=== PATIENT | female | born 1980 | race Caucasian/White ===

== ENCOUNTER → 2024-02-29 11:10 | Outpatient (REF) | payer OTHER, SELFPAY | LOC: RAD 11:10 | PROVIDERS: ATTENDING PHYSICIAN Family Medicine | DX: S20.219A Contusion of unspecified front wall of thorax, initial encounter (principal); V89.2XXA Person injured in unspecified motor-vehicle accident, traffic, initial encounter | CPT/HCPCS: 71101; 71120 ==

== ENCOUNTER 2025-05-27 18:22 | Emergency (ER) | payer OTHER, SELFPAY ==
[2025-05-27 18:30] VITALS: BP 122/93
[2025-05-27 19:21] VITALS: BMI 20.4
[2025-05-27 20:15] VITALS: BP 138/80
[2025-05-27] MEDS: NORCO 5/325 1 TABLET PO (20:19)
--- NOTE | 2025-05-27 21:47 | ED.MUSCINJ ---
HPI-Injury
General
Chief Complaint: Musculo-Skeletal Complaint
Source: patient
Exam Limitations: none
Time Seen by Provider: 05/27/25 18:37
Nursing documentation reviewed up to this point in time: agreed with
History of Present Illness-Injury
Is this injury a work related problem?: No
Is pt an associate of [facility]/[place]?: No
Initial Injury comments:
Patient states she was pulling weeds and fell back. Fell onto buttocks. States she heard a crack and then passed out. She reports pain to coccyx and sacrum. Incident occured this afternoon.
Past History
Past History
ED Past Medical History: Psychiatric (depression)
ED Past Surgical History: None
Social History
Tobacco: Non-smoker
Alcohol: Daily
Drug: None
Personal:
Living: with family
Employment: Employed
Family History
Family History: Other (No history of cervical vascular disease)
Review of Systems
Review of Systems
Allergies reviewed?: Yes
All Other Systems: ROS reviewed and negative except as documented in HPI and ROS
Constitutional: Reports no symptoms
EENT: Reports no symptoms
Respiratory: Reports no symptoms
Cardiac: Reports no symptoms
ABD/GI: Reports no symptoms
: Reports no symptoms
Musculoskeletal: Reports other (pain to sacrum and coccyx)
Skin: Reports no symptoms
Neurological: Reports no symptoms
Psychiatric: Reports no symptoms
Musculoskeletal Injury Exam
Musculoskeletal Injury Exam
Sacrum and coccyx:
Tender to palpation?: Moderate
Soft tissue swelling?: None
External deformity and angulation?: None
Joint effusion?: None
Contusion?: Moderate
Hematoma-local bleeding into tissue?: None
Strain- Sprain- Tear (Connective tissue injury)?: None
Crepitus with movement?: No
Joint instability?: No
Malalignment/deformity?: No
Range of motion: Limited
Distal skin color and temperature: normal-warm & good color
Capillary Refill: normal
Normal distal neurovascular exam?: Yes
Phy Exam
General Physical Exam
General Presentation: well appearing and moderate distress
General age: appears stated age
General Skin: warm and dry
General Habitus: normal
General Mental: alert
General Hydration: appears well hydrated
Neurological Exam
Neurological Exam: alert and oriented x3
Musculoskeletal Exam
Musculoskeletal Exam: neuro vasc intact
Skin Exam
Skin Exam: normal color and warm/dry
Psychiatric Exam
Psychiatric Exam: normal mood/affect
Injury Course
Orders/Labs/Results
Orders:
Orders
05/27/25 18:32
Coccyx/Sacrum, 2 View CR [CR Sacrum/coccyx Min 2 View] Urgent
Comment:
Reason For Exam: fall, tailbone pain
05/27/25 20:04
Hydrocodone 5/APAP 325 [[place] 5/325] 1 tablet PO NOW STA
*Radiology
Radiology exam reviewed: radiology read reviewed
*Pulse Oximetry
SaO2: 99
Oxygen Mode of Delivery: Room air
Patient hypoxic: no
*Critical Care Note
Total Time (30-74mins, 75-104mins- exclusive of procedures): Not Applicable
ED Attending Note
-
Portions of this chart may have been created with voice recognition software.� Occasional wrong word or��sound alike� substitutions may have occurred due to the inherent limitations of voice recognition software.
Discharge Plan
Departure
Patient Disposition: Home (Routine Discharge)
Date of Disposition: 05/27/25
Time of Disposition: 20:13
Patient with high blood pressure during this ER visit?: No
Condition: Good
Covid-19: Not Applicable
Discharge Problem:
Contusion of sacrum
Instructions: Contusion (DC), Ibuprofen, Using Cold for Pain
Prescriptions:
New
hydrocodone-acetaminophen 5-325 mg tablet
1 tab PO Q4H PRN (Reason: Pain) Qty: 14 0RF
No Action
sertraline 50 MG tablet
150 mg PO QPM
bupropion HCl 75 mg Tablet
75 mg PO DAILY
Referrals:
Theo Saenz MD [Family Provider, Internal Medicine] - Follow up in 2-3 days
Stand Alone Forms: Return to Work
Interventions
Interventions:
*Risk Screen - Suicide Last Done: 05/27/25 18:31
*General Assessment Last Done: 05/27/25 18:31
*Neglect/Abuse Screening Last Done: 05/27/25 18:31
*ED- Fall Risk Assessment Last Done: 05/27/25 19:20
*ED COVID-19 Vaccine History Last Done: 05/27/25 18:31
*ED Influenza Vaccine History Last Done: 05/27/25 18:31
*Nursing Disposition Last Done: 05/27/25 20:26
ED-Musculoskeletal Assessment Last Done: 05/27/25 19:20
Discharge Date and Time
Discharge Date/Time: 05/27/25 20:27
Print Language: ZAMBIAN
== END 2025-05-27 20:27 | disposition home or self-care (01) ==
LOC: EMR 18:22
PROVIDERS: EMERGENCY PHYSICIAN Student in an Organized Health Care Education/Training Program; FAMILY PHYSICIAN Internal Medicine
DX: S30.0XXA Contusion of lower back and pelvis, initial encounter (principal); W19.XXXA Unspecified fall, initial encounter; F32.A Depression, unspecified
CPT/HCPCS: 99283; 72220